=== PATIENT | male | born 1945 ===

== ENCOUNTER 2018-06-02 07:44 | Day surgery (SDC) | payer MEDICARE ==
[2018-05-28 08:41] VITALS: BMI 31.2
[2018-06-02] MEDS ORDERED: cefTRIAXone (Rocephin) 1 gm Inj ONE (09:13)
[2018-06-02] MEDS ORDERED: Succinylcholine 200 mg/10 ml Inj IV ONE (09:24)
[2018-06-02] MEDS ORDERED: Propofol 10 mg/ml Inj (20 ML) ONE (09:24)
[2018-06-02] MEDS ORDERED: Lactated Ringer's 1,000 ML IV ONE ×2 (09:30→10:10)
[2018-06-02] MEDS ORDERED: ePHEDrine 50 mg/ml Inj ONE (09:43)
[2018-06-02] MEDS ORDERED: Phenylephrine 10 mg/ml Inj ONE (09:49)
[2018-06-02 10:28] VITALS: RESP 20
[2018-06-02 13:05] VITALS: BP 120/68; PULSE 66; TEMP 97.8; O2SAT 99
--- NOTE | 2018-06-02 13:30 | RAD ---
Date of service: 06/02/2018 PROCEDURE: Intraoperative Fluoroscopy. HISTORY: CYSTOSCOPY FINDINGS: Fluoroscopic assistance was provided for cystoscopy. Please refer to the operative report from [facility]. Nine images submitted.
--- NOTE | 2018-06-02 19:54 | OP ---
PROCEDURE DATE: 06/02/2018 PREOPERATIVE DIAGNOSIS: Proximal urethral stricture. POSTOPERATIVE DIAGNOSIS: Proximal urethral stricture. PROCEDURE PERFORMED: Cystoscopy with laser urethrotomy of the urethral stricture. DESCRIPTION OF PROCEDURE: The patient was placed on the operating room table, given general anesthesia, in a dorsal lithotomy position. The area of the groin was draped and prepped in the sterile manner. At this time, using a #19 cystoscope, I entered in to the urethra atraumatically. The level of the proximal urethra could not pass any cystoscope. At this time, I was able to get a Sensor wire through the area that was very tight. Once this was in place, I used that as a safety and then deployed a 500 laser fiber and began to lyse the stenotic area. Once the opening was sufficiently large, I then was able to pass the cystoscope freely from there in to the bladder. The prostate shows some trilobar hypertrophy but not occlusive at this time. I went back to the area of the surgical site, made sure that the fibers were sufficiently cut with the laser and then I removed the cystoscope and easily I was able to pass a # 20 two-way [place] to maintain patency. Blood loss was nil. The patient was taken from the operative room in good condition. Essence Castellanos MD
== END 2018-06-02 13:00 | disposition home or self-care (01) ==
LOC: H.OPSURG 07:44
PROVIDERS: ATTEND Urology
DX: N35.9 Urethral stricture, unspecified (principal)
CPT/HCPCS: 52275; C1769; J0696; J2370; J2704; J3010; J7120

== ENCOUNTER 2018-06-08 22:29 | Observation (INO) | payer MEDICARE ==
[2018-06-08 22:30] VITALS: BMI 31.2
[2018-06-08] MEDS ORDERED: Sodium Chloride 0.9% 100 ML IV STA (23:05)
[2018-06-08 23:16] LABS: URINE BILIRUBIN NEGATIVE (NEGATIVE); URINE BLOOD LARGE (NEGATIVE); URINE CLARITY CLOUDY (Clear); URINE COLOR RED (YELLOW); URINE GLUCOSE (UA) 50 mg/dL (Normal); URINE LEUKOCYTE ESTERASE NEG Leu/uL (Negative); URINE PROTEIN 100 mg/dL (NEGATIVE); URINE UROBILINOGEN 0.2-1.0 mg/dL (0.2-1.0)
[2018-06-08 23:19] LABS: BASO % 0.7 % (0.0-2.0); EOS # 0.1 K/uL (0.0-0.7); LYMPH # 2.1 K/uL (1.0-4.3); LYMPH % 34.5 % (20.0-40.0); MEAN CELL VOLUME 91.7 fl (80.0-94.0); MEAN CORPUSCULAR HEMOGLOBIN 31.1 pg (27.0-31.0); MEAN PLATELET VOLUME 8.1 fl (7.2-11.7); MONO # 0.8 K/uL (0.0-0.8); MONO % 13.1 % (0.0-10.0); NEUT % 49.7 % (50.0-75.0); RBC 4.5 Mil/uL (4.40-5.90); RED CELL DISTRIBUTION WIDTH 13.8 % (11.5-14.5)
[2018-06-08 23:24] LABS: INR 1.1; PROTHROMBIN TIME 11.9 Seconds (9.8-13.1)
[2018-06-08 23:26] LABS: PARTIAL THROMBOPLASTIN TIME 34.1 Seconds (25.6-37.1)
[2018-06-08 23:27] LABS: ALB/GLOB RATIO 1.4 (1.0-2.1); ALBUMIN 4.6 g/dL (3.5-5.0); ALT/SGPT 30 U/L (21-72); AST/SGOT 39 U/L (17-59); BLOOD UREA NITROGEN 18 mg/dl (9-20); CALCIUM 9.2 mg/dL (8.4-10.2); GFR AFRICAN-AMERICAN > 60; GFR NON-AFRICAN AMERICAN > 60
--- NOTE | 2018-06-08 23:35 | ED PDOC ---
HPI: Male Pain Time Seen by Provider: 06/08/18 22:45 Chief Complaint (Nursing): Male Genitourinary Chief Complaint (Provider): hematuria History Per: Patient History/Exam Limitations: no limitations Onset/Duration Of Symptoms: Sudden Onset (at 2pm today, 3 episodes.) Current Symptoms Are (Timing): Still Present Quality Of Discomfort: Other (just prior to arrival started to have dysuria) Associated Symptoms: Urinary Symptoms. denies: Fever, Chills, Nausea, Vomiting , Diarrhea, Loss Of Appetite, Back Pain, Chest Pain, Constipation, Other Additional Complaint(s): Hematuria with large clots since 2p. Recently had cystoscopy 06/[address] Castellanos Pt also on anticoagulants for arrythmia He denies bleeding elsewhere PMD Dr Maurizio Morales Past Medical History Reviewed: Historical Data, Nursing Documentation, Vital Signs Vital Signs: Last Vital Signs Temp 98.2 F 06/08/18 22:35 Pulse 61 06/08/18 22:35 Resp 17 06/08/18 22:35 BP 161/84 H 06/08/18 22:35 Pulse Ox 99 06/08/18 22:35 - Medical History PMH: Cardia Arrhythmia, Hypercholesterolemia Denies: Chronic Kidney Disease - Family History Family History: States: Hypertension - Social History Current smoker - smoking cessation education provided: No - Home Medications Home Medications: Ambulatory Orders Medication Instructions Recorded Aspirin [Aspirin Chewable] 81 mg PO DAILY 12/13/16 Clopidogrel [Plavix] 75 mg PO DAILY 12/13/16 Metoprolol Tartrate [Lopressor] 25 mg PO DAILY 12/13/16 Ranolazine [Ranexa] 500 mg PO BID 12/13/16 Ergocalciferol (Vitamin D2) 1.25 mg PO ASDIR 12/17/16 [Vitamin D2] Nitroglycerin [Nitrostat SL Tab] 1 tab PO TID PRN 12/17/16 Atorvastatin [Lipitor] 20 mg PO DAILY 05/28/18 Ciprofloxacin [Cipro] 500 mg PO BID 06/02/18 - Allergies Allergies/Adverse Reactions: Allergies Allergy/AdvReac Type Severity Reaction Status Date / Time No Known Allergies Allergy Verified 06/02/18 08:18 Review of Systems ROS Statement: Except As Marked, All Systems Reviewed And Found Negative (and as per HPI) Constitutional: Negative for: Fever, Chills Genitourinary Male: Positive for: Dysuria, Hematuria Physical Exam - Reviewed Nursing Documentation Reviewed: Yes Vital Signs Reviewed: Yes - Physical Exam Appears: Positive for: Non-toxic, No Acute Distress Head Exam: Positive for: ATRAUMATIC, NORMOCEPHALIC Skin: Positive for: Warm, Dry Eye Exam: Positive for: EOMI, PERRL ENT: Negative for: Pharyngeal Erythema, Tonsillar Exudate Neck: Positive for: Painless ROM, Supple Cardiovascular/Chest: Positive for: Regular Rate, Rhythm. Negative for: Murmur Respiratory: Positive for: Normal Breath Sounds. Negative for: Wheezing Gastrointestinal/Abdominal: Positive for: Bowel Sounds, Soft. Negative for: Tenderness Back: Positive for: Normal Inspection. Negative for: L CVA Tenderness, R CVA Tenderness Extremity: Positive for: Normal ROM. Negative for: Deformity Lymphatic: Negative for: Adenopathy Neurologic/Psych: Positive for: Alert. Negative for: Motor/Sensory Deficits - Laboratory Results Result Diagrams: 06/08/18 23:05 06/08/18 23:05 - ECG O2 Sat by Pulse Oximetry: 99 - Physician Consult Information Physician Contacted: Essence Castellanos Outcome Of Conversation: Pt to be hydrated and observed for progression to obstructive hematuria. Will eval in morn. Disposition - Clinical Impression Clinical Impression: Hematuria Discussed With : Brannon Angela Doctor Will See Patient In The: ED - Disposition Disposition Time: 23:00 Condition: FAIR - Pt Status Changed To: Hospital Disposition Of: Observation - POA Present On Arrival: None
--- NOTE | 2018-06-09 00:01 | CP.PCM.HP ---
History of Present Illness - History of Present Illness History of Present Illness: PMD:Dr Maurizio Morales Chief Complaint: Hematuria The patient was seen and examined in the ED with no family present HPI: 73 years old male with hx of Urinary stricture with cystostomy in 07/11/15, Acute Coronary Syndrome on ASA, Plavix and Ranexa as per patient, and Arrhythmia as per medical records, underwent again Cystostomy on 06/02/[address] Castellanos of Urology. The fritz catheter was removed on 06/05/18. He comes to the ED because of sudden unset of hematuria with clots today 06/08/18 with mild dysuria and frequency.. No fever, chills, nausea, vomits, Chest pain, Diarrhea PMH: Urethral Stricture; Cardiac Arrhythmia; ACS; PSH: Cystostopy with Urethrotomy on 07/11/15; Bilateral Inguinal hernia repair SH: Former Smoker; Used Alcohol in the past; No illegal drug use; Live alone FH: Significant for HTN Medication: Reviewed Present on Admission - Present on Admission Any Indicators Present on Admission: No History of DVT/PE: No History of Uncontrolled Diabetes: No Urinary Catheter: No Decubitus Ulcer Present: No Review of Systems - Constitutional Constitutional: absent: Anorexia, Chills, Fever, Headache - EENT Eyes: Requires Corrective Lenses. absent: Blurred Vision, Diplopia, Floaters Ears: absent: Decreased Hearing, Tinnitus Nose/Mouth/Throat: absent: Nasal Congestion, Nasal Discharge, Sinus Pain, Sinus Pressure - Cardiovascular Cardiovascular: absent: Chest Pain, Dyspnea, Edema, Palpitations - Respiratory Respiratory: absent: Cough, Dyspnea - Gastrointestinal Gastrointestinal: absent: Constipation, Diarrhea, Nausea, Vomiting - Genitourinary Genitourinary: Dysuria, Hematuria, Urinary Frequency. absent: Flank Pain - Musculoskeletal Musculoskeletal: absent: Arthralgias, Back Pain, Muscle Weakness - Integumentary Integumentary: absent: Pruritus, Rash, Skin Ulcer, Sores, Striae, Swelling - Neurological Neurological: absent: Confusion, Dizziness, Numbness, Focal Weakness, Weakness - Psychiatric Psychiatric: absent: Anxiety, Depression, Panic Attacks - Endocrine Endocrine: absent: Palpitations, Polydipsia, Polyphagia, Polyuria - Hematologic/Lymphatic Hematologic: absent: Easy Bleeding, Easy Bruising Past Patient History - Past Medical History & Family History Past Medical History?: Yes - Past Social History Smoking Status: Former Smoker Chewing Tobacco Use: No Cigar Use: No Alcohol: Other Drugs: Denies Home Situation {Lives}: Alone - CARDIAC Hx Cardia Arrhythmia: Yes Hx Hypercholesterolemia: Yes - PULMONARY Hx Respiratory Disorders: No - NEUROLOGICAL Hx Neurological Disorder: No - HEENT Hx HEENT Problems: No - RENAL Other/Comment: Urethral Stricture - ENDOCRINE/METABOLIC Hx Endocrine Disorders: No - HEMATOLOGICAL/ONCOLOGICAL Hx Blood Disorders: No - INTEGUMENTARY Hx Dermatological Problems: No - MUSCULOSKELETAL/RHEUMATOLOGICAL Hx Musculoskeletal Disorders: No - GASTROINTESTINAL Hx Gastrointestinal Disorders: No - GENITOURINARY/GYNECOLOGICAL Hx Genitourinary Disorders: No Hx Prostate Problems: Yes (difficulty of starting to urinate) - PSYCHIATRIC Hx Psychophysiologic Disorder: No - SURGICAL HISTORY Hx Surgeries: Yes Hx Cardiac Catheterization: Yes (4 months ago) Hx Herniorrhaphy: Yes (inguinal right and left) Other/Comment: bilateral inguinal hernia repair 15 yrs ago cystoscopy - ANESTHESIA Hx Anesthesia: Yes Hx Anesthesia Reactions: No Hx Malignant Hyperthermia: No Meds Allergies/Adverse Reactions: Allergies Allergy/AdvReac Type Severity Reaction Status Date / Time No Known Allergies Allergy Verified 06/09/18 00:52 Physical Exam - Constitutional Appears: No Acute Distress - Head Exam Head Exam: ATRAUMATIC, NORMAL INSPECTION, NORMOCEPHALIC - Eye Exam Eye Exam: EOMI, Normal appearance Pupil Exam: NORMAL ACCOMODATION, PERRL - ENT Exam ENT Exam: Mucous Membranes Dry, Normal Exam, Normal External Ear Exam - Neck Exam Neck exam: Positive for: Full Rom, Normal Inspection. Negative for: Lymphadenopathy, Tenderness - Respiratory Exam Respiratory Exam: absent: Rhonchi, Wheezes Additional comments: Left base with inspiratory rales and right base with decreased breath sounds - Cardiovascular Exam Cardiovascular Exam: REGULAR RHYTHM, RRR, +S1, +S2 - GI/Abdominal Exam GI & Abdominal Exam: Normal Bowel Sounds, Soft. absent: Mass, Organomegaly, Tenderness - Rectal Exam Rectal Exam: Deferred - Extremities Exam Extremities exam: Negative for: full ROM, joint swelling, normal inspection - Back Exam Back exam: NORMAL INSPECTION. absent: CVA tenderness (L), CVA tenderness (R) - Neurological Exam Neurological exam: Alert, CN II-XII Intact, Oriented x3, Reflexes Normal - Psychiatric Exam Psychiatric exam: Normal Affect, Normal Mood - Skin Skin Exam: Dry, Intact, Normal Color, Warm Results - Vital Signs Recent Vital Signs: Last Vital Signs Temp 98.2 F 06/08/18 22:35 Pulse 61 06/08/18 22:35 Resp 17 06/08/18 22:35 BP 161/84 H 06/08/18 22:35 Pulse Ox 99 06/08/18 23:55 - Labs Result Diagrams: 06/08/18 23:05 06/08/18 23:05 Labs: Laboratory Results - last 24 hr 06/08/18 06/08/18 06/08/18 22:50 23:05 23:05 WBC 6.0 RBC 4.50 Hgb 14.0 Hct 41.2 MCV 91.7 MCH 31.1 H MCHC 34.0 RDW 13.8 Plt Count 261 MPV 8.1 Neut % (Auto) 49.7 L Lymph % (Auto) 34.5 [place] % (Auto) 13.1 H Eos % (Auto) 2.0 Baso % (Auto) 0.7 Neut # (Auto) 3.0 Lymph # (Auto) 2.1 [place] # (Auto) 0.8 Eos # (Auto) 0.1 Baso # (Auto) 0.0 PT INR APTT Sodium 135 Potassium 3.8 Chloride 96 L Carbon Dioxide 30 Anion Gap 13 BUN 18 Creatinine 1.1 Est GFR ( Amer) > 60 Est GFR (Non-Af Amer) > 60 Random Glucose 100 Calcium 9.2 Total Bilirubin 0.4 AST 39 ALT 30 Alkaline Phosphatase 108 Total Protein 8.0 Albumin 4.6 Globulin 3.4 Albumin/Globulin Ratio 1.4 Urine Color Red Urine Clarity Cloudy Urine pH 7.0 Ur Specific [place] 1.009 Urine Protein 100 Urine Glucose (UA) 50 Urine Ketones Negative Urine Blood Large Urine Nitrate Negative Urine Bilirubin Negative Urine Urobilinogen 0.2-1.0 Ur Leukocyte Esterase Neg Urine RBC (Auto) 2869 H Urine Microscopic WBC 16 H Blood Type BBK History Checked 06/08/18 06/08/18 23:05 23:05 WBC RBC Hgb Hct MCV MCH MCHC RDW Plt Count MPV Neut % (Auto) Lymph % (Auto) [place] % (Auto) Eos % (Auto) Baso % (Auto) Neut # (Auto) Lymph # (Auto) [place] # (Auto) Eos # (Auto) Baso # (Auto) PT 11.9 INR 1.1 APTT 34.1 Sodium Potassium Chloride Carbon Dioxide Anion Gap BUN Creatinine Est GFR ( Amer) Est GFR (Non-Af Amer) Random Glucose Calcium Total Bilirubin AST ALT Alkaline Phosphatase Total Protein Albumin Globulin Albumin/Globulin Ratio Urine Color Urine Clarity Urine pH Ur Specific [place] Urine Protein Urine Glucose (UA) Urine Ketones Urine Blood Urine Nitrate Urine Bilirubin Urine Urobilinogen Ur Leukocyte Esterase Urine RBC (Auto) Urine Microscopic WBC Blood Type O POSITIVE BBK History Checked No verified bt - Imaging and Cardiology Chest x-ray Status: Image reviewed by me Additional comment: Elevated right diaphragm.No infiltrates Assessment & Plan - Assessment and Plan (Free Text) Assessment: #. Hematuria s/p Cystectomy #. Elevated Blood Pressures #. Hx of ACS Plan: 73 years old male with hx of Urinary stricture with cystostomy in , Acute Coronary Syndrome on ASA, Plavix and Ranexa as per patient, underwent again Cystostomy on 06/02/[address] Castellanos of Urology. He started presenting Hematuria 5 days post Cystostomy. #. Hematuria s/p Cystectomy probably secondary to the Ranexa in combination with ASA and Plavix - Hold Ranexa/Asa and Platelet until cleared by Urology - IV Fluid - Follow Hb #. Elevated Blood Pressures - Continue Lopressor - Follow blood Pressures #. Hx of ACS - Lipitor - ASA/ Plavix and Ranexa on hold #. Pulmonary Rales most likely secondary to Atelecstasis #. DVT Prophylaxis with SCD #. Code Status: Full - Date & Time Date: 06/09/18 Time: 00:00
--- NOTE | 2018-06-09 00:02 | CP.PCM.HP ---
Past Patient History - Past Medical History & Family History Past Medical History?: Yes - Past Social History Smoking Status: Never Smoked - CARDIAC Hx Cardia Arrhythmia: Yes Hx Hypercholesterolemia: Yes - PULMONARY Hx Respiratory Disorders: No - NEUROLOGICAL Hx Neurological Disorder: No - HEENT Hx HEENT Problems: No - RENAL Hx Chronic Kidney Disease: No - ENDOCRINE/METABOLIC Hx Endocrine Disorders: No - HEMATOLOGICAL/ONCOLOGICAL Hx Blood Disorders: No - INTEGUMENTARY Hx Dermatological Problems: No - MUSCULOSKELETAL/RHEUMATOLOGICAL Hx Musculoskeletal Disorders: No - GENITOURINARY/GYNECOLOGICAL Hx Genitourinary Disorders: No Hx Prostate Problems: Yes (difficulty of starting to urinate) - PSYCHIATRIC Hx Psychophysiologic Disorder: No - SURGICAL HISTORY Hx Surgeries: Yes Hx Cardiac Catheterization: Yes (4 months ago) Hx Herniorrhaphy: Yes (inguinal right and left) Other/Comment: bilateral inguinal hernia repair 15 yrs ago cystoscopy - ANESTHESIA Hx Anesthesia: Yes Hx Anesthesia Reactions: No Hx Malignant Hyperthermia: No Meds Allergies/Adverse Reactions: Allergies Allergy/AdvReac Type Severity Reaction Status Date / Time No Known Allergies Allergy Verified 06/02/18 08:18 Results - Vital Signs Recent Vital Signs: Last Vital Signs Temp 98.2 F 06/08/18 22:35 Pulse 61 06/08/18 22:35 Resp 17 06/08/18 22:35 BP 161/84 H 06/08/18 22:35 Pulse Ox 99 06/08/18 23:55 - Labs Result Diagrams: 06/08/18 23:05 06/08/18 23:05 Labs: Laboratory Results - last 24 hr 06/08/18 06/08/18 06/08/18 22:50 23:05 23:05 WBC 6.0 RBC 4.50 Hgb 14.0 Hct 41.2 MCV 91.7 MCH 31.1 H MCHC 34.0 RDW 13.8 Plt Count 261 MPV 8.1 Neut % (Auto) 49.7 L Lymph % (Auto) 34.5 [place] % (Auto) 13.1 H Eos % (Auto) 2.0 Baso % (Auto) 0.7 Neut # (Auto) 3.0 Lymph # (Auto) 2.1 [place] # (Auto) 0.8 Eos # (Auto) 0.1 Baso # (Auto) 0.0 PT INR APTT Sodium 135 Potassium 3.8 Chloride 96 L Carbon Dioxide 30 Anion Gap 13 BUN 18 Creatinine 1.1 Est GFR ( Amer) > 60 Est GFR (Non-Af Amer) > 60 Random Glucose 100 Calcium 9.2 Total Bilirubin 0.4 AST 39 ALT 30 Alkaline Phosphatase 108 Total Protein 8.0 Albumin 4.6 Globulin 3.4 Albumin/Globulin Ratio 1.4 Urine Color Red Urine Clarity Cloudy Urine pH 7.0 Ur Specific [place] 1.009 Urine Protein 100 Urine Glucose (UA) 50 Urine Ketones Negative Urine Blood Large Urine Nitrate Negative Urine Bilirubin Negative Urine Urobilinogen 0.2-1.0 Ur Leukocyte Esterase Neg Urine RBC (Auto) 2869 H Urine Microscopic WBC 16 H Blood Type BBK History Checked 06/08/18 06/08/18 23:05 23:05 WBC RBC Hgb Hct MCV MCH MCHC RDW Plt Count MPV Neut % (Auto) Lymph % (Auto) [place] % (Auto) Eos % (Auto) Baso % (Auto) Neut # (Auto) Lymph # (Auto) [place] # (Auto) Eos # (Auto) Baso # (Auto) PT 11.9 INR 1.1 APTT 34.1 Sodium Potassium Chloride Carbon Dioxide Anion Gap BUN Creatinine Est GFR ( Amer) Est GFR (Non-Af Amer) Random Glucose Calcium Total Bilirubin AST ALT Alkaline Phosphatase Total Protein Albumin Globulin Albumin/Globulin Ratio Urine Color Urine Clarity Urine pH Ur Specific [place] Urine Protein Urine Glucose (UA) Urine Ketones Urine Blood Urine Nitrate Urine Bilirubin Urine Urobilinogen Ur Leukocyte Esterase Urine RBC (Auto) Urine Microscopic WBC Blood Type O POSITIVE BBK History Checked No verified bt Assessment & Plan - Date & Time Date: 06/08/18 Time: 23:55
[2018-06-09] MEDS: Sodium Chloride 0.9% 1,000 ML IV SCH ×2 (00:55→10:14)
[2018-06-09 06:39] LABS: BASO % 0.6 % (0.0-2.0); EOS # 0.1 K/uL (0.0-0.7); EOS % 2.2 % (0.0-4.0); LYMPH # 1.8 K/uL (1.0-4.3); LYMPH % 33.9 % (20.0-40.0); MEAN CELL VOLUME 91.2 fl (80.0-94.0); MEAN CORPUSCULAR HEMOGLOBIN 31.2 pg (27.0-31.0); MEAN CORPUSCULAR HGB CONC 34.3 g/dL (33.0-37.0); MEAN PLATELET VOLUME 8.3 fl (7.2-11.7); MONO # 0.6 K/uL (0.0-0.8); MONO % 11.8 % (0.0-10.0); NEUT # 2.8 K/uL (1.8-7.0); NEUT % 51.5 % (50.0-75.0); NRBC % 0.1 % (0.0-0.0); RBC 4.15 Mil/uL (4.40-5.90); RED CELL DISTRIBUTION WIDTH 13.6 % (11.5-14.5); WHITE BLOOD COUNT 5.5 K/uL (4.8-10.8)
[2018-06-09 08:09] VITALS: TEMP 98
--- NOTE | 2018-06-09 08:23 | CARD ---
APPROVED REPORT Date of service: 06/09/2018 EKG Measurement Heart [id number] <Conclusion> Sinus bradycardia Otherwise normal ECG
--- NOTE | 2018-06-09 08:28 | RAD ---
Date of service: 06/09/2018 HISTORY: Rales at left base; decreased breath sounds at rig COMPARISON: Chest radiographs 05/27/2018. TECHNIQUE: Chest PA and lateral FINDINGS: LUNGS: No active pulmonary disease. PLEURA: No significant pleural effusion identified. No pneumothorax apparent. CARDIOVASCULAR: Normal. OSSEOUS STRUCTURES: No significant abnormalities. VISUALIZED UPPER ABDOMEN: Elevated right hemidiaphragm stable. OTHER FINDINGS: None. IMPRESSION: No acute cardiopulmonary disease appreciable. Elevated right hemidiaphragm again identified.
[2018-06-09 12:46] VITALS: BP 114/76; PULSE 95; RESP 22; O2SAT 97
--- NOTE | 2018-06-09 13:56 | CP.PCM.DIS ---
Provider - Provider Date of Admission: 06/08/18 23:53 Attending physician: Brannon Angela Primary care physician: Maurizio Akbar MD Consults: urology consult Time Spent in preparation of Discharge (in minutes): 15 Hospital Course - Lab Results Lab Results: Most Recent Lab Values WBC 5.5 K/uL (4.8-10.8) 06/09/18 05:45 RBC 4.15 Mil/uL (4.40-5.90) L 06/09/18 05:45 Hgb 13.0 g/dL (12.0-18.0) 06/09/18 05:45 Hct 37.9 % (35.0-51.0) 06/09/18 05:45 MCV 91.2 fl (80.0-94.0) 06/09/18 05:45 MCH 31.2 pg (27.0-31.0) H 06/09/18 05:45 MCHC 34.3 g/dL (33.0-37.0) 06/09/18 05:45 RDW 13.6 % (11.5-14.5) 06/09/18 05:45 Plt Count 233 K/uL (130-400) 06/09/18 05:45 MPV 8.3 fl (7.2-11.7) 06/09/18 05:45 Neut % (Auto) 51.5 % (50.0-75.0) 06/09/18 05:45 Lymph % (Auto) 33.9 % (20.0-40.0) 06/09/18 05:45 [place] % (Auto) 11.8 % (0.0-10.0) H 06/09/18 05:45 Eos % (Auto) 2.2 % (0.0-4.0) 06/09/18 05:45 Baso % (Auto) 0.6 % (0.0-2.0) 06/09/18 05:45 Neut # (Auto) 2.8 K/uL (1.8-7.0) 06/09/18 05:45 Lymph # (Auto) 1.8 K/uL (1.0-4.3) 06/09/18 05:45 [place] # (Auto) 0.6 K/uL (0.0-0.8) 06/09/18 05:45 Eos # (Auto) 0.1 K/uL (0.0-0.7) 06/09/18 05:45 Baso # (Auto) 0.0 K/uL (0.0-0.2) 06/09/18 05:45 PT 11.9 Seconds (9.8-13.1) 06/08/18 23:05 INR 1.1 06/08/18 23:05 APTT 34.1 Seconds (25.6-37.1) 06/08/18 23:05 Sodium 135 mmol/l (132-148) 06/08/18 23:05 Potassium 3.8 MMOL/L (3.6-5.0) 06/08/18 23:05 Chloride 96 mmol/L (98-107) L 06/08/18 23:05 Carbon Dioxide 30 mmol/L (22-30) 06/08/18 23:05 Anion Gap 13 (10-20) 06/08/18 23:05 BUN 18 mg/dl (9-20) 06/08/18 23:05 Creatinine 1.1 mg/dl (0.8-1.5) 06/08/18 23:05 Est GFR ( Amer) > 60 06/08/18 23:05 Est GFR (Non-Af Amer) > 60 06/08/18 23:05 Random Glucose 100 mg/dL (75-110) 06/08/18 23:05 Calcium 9.2 mg/dL (8.4-10.2) 06/08/18 23:05 Total Bilirubin 0.4 mg/dl (0.2-1.3) 06/08/18 23:05 AST 39 U/L (17-59) 06/08/18 23:05 ALT 30 U/L (21-72) 06/08/18 23:05 Alkaline Phosphatase 108 U/L (38-126) 06/08/18 23:05 Troponin I < 0.0120 ng/mL (0.00-0.120) 06/09/18 12:40 Total Protein 8.0 G/DL (6.3-8.2) 06/08/18 23:05 Albumin 4.6 g/dL (3.5-5.0) 06/08/18 23:05 Globulin 3.4 gm/dL (2.2-3.9) 06/08/18 23:05 Albumin/Globulin Ratio 1.4 (1.0-2.1) 06/08/18 23:05 Urine Color Red (YELLOW) 06/08/18 22:50 Urine Clarity Cloudy (Clear) 06/08/18 22:50 Urine pH 7.0 (5.0-8.0) 06/08/18 22:50 Ur Specific [place] 1.009 (1.003-1.030) 06/08/18 22:50 Urine Protein 100 mg/dL (NEGATIVE) 06/08/18 22:50 Urine Glucose (UA) 50 mg/dL (Normal) 06/08/18 22:50 Urine Ketones Negative mg/dL (NEGATIVE) 06/08/18 22:50 Urine Blood Large (NEGATIVE) 06/08/18 22:50 Urine Nitrate Negative (NEGATIVE) 06/08/18 22:50 Urine Bilirubin Negative (NEGATIVE) 06/08/18 22:50 Urine Urobilinogen 0.2-1.0 mg/dL (0.2-1.0) 06/08/18 22:50 Ur Leukocyte Esterase Neg [place]/uL (Negative) 06/08/18 22:50 Urine RBC (Auto) 2869 /hpf (0-3) H 06/08/18 22:50 Urine Microscopic WBC 16 /hpf (0-5) H 06/08/18 22:50 Blood Type O POSITIVE 06/08/18 23:05 Antibody Screen Negative 06/08/18 23:05 BBK History Checked No verified bt 06/08/18 23:05 - Hospital Course Hospital Course: 73 years old male with hx of Urinary stricture with cystostomy in , Acute Coronary Syndrome on ASA, Plavix and Ranexa as per patient, underwent again Cystostomy on 06/02/[address] Castellanos of Urology. He started presenting Hematuria 5 days post Cystostomy.Patient presented to ER for evaluation and urology was consulted .He was placed under observation in med/ surg. H& H remained stable during admission and hematuria resolved . urology evaluated patient and cleared for discharge During this stay patient was noted to use his own nitro Sl as recommended by his manager of creative services for angina. 12 lead EKG wsa performed and showed NSR with no ST -T wave changes and troponins were egative. patient has had cardiac cath by his manager of creative services 1 year ago and was clear with no stents placed but was placed onnitro and Ranezx afor angina. At present he is hemodynamically stable with no chest pain or SOB. He is under the care of his manager of creative services and follows up regularly every 2 months Will discharge patient home in stable conditions. Advise to follow up with his PMD ( manager of creative services ) and with Dr. Castellanos in 1 week in his office Will resume his home medications on discharge 1. Hematuria s/p Cystectomy-- resolved H&H stable Follow up with Dr. Castellanos in 1 week 2. Elevated Blood Pressures Continue Lopressor 3. Hx of ACS/ angina trop negative 12 lead EKG negative for ST-T wave changes follow up with his manager of creative services resume home meds Discharge Exam - Head Exam Head Exam: ATRAUMATIC, NORMAL INSPECTION, NORMOCEPHALIC - Eye Exam Eye Exam: EOMI, Normal appearance, PERRL Pupil Exam: NORMAL ACCOMODATION - ENT Exam ENT Exam: Mucous Membranes Moist, Normal Exam - Neck Exam Neck exam: Full Rom, Normal Inspection - Respiratory Exam Respiratory Exam: Clear to PA & Lateral, NORMAL BREATHING PATTERN. absent: Rales, Rhonchi, Wheezes - Cardiovascular Exam Cardiovascular Exam: REGULAR RHYTHM, RRR, +S1, +S2. absent: JVD - GI/Abdominal Exam GI & Abdominal Exam: Normal Bowel Sounds, Soft. absent: Distended, Guarding, Rebound, Tenderness - Rectal Exam Rectal Exam: Deferred - Extremities Exam Extremities exam: normal capillary refill, normal inspection, pedal pulses present - Back Exam Back exam: NORMAL INSPECTION - Neurological Exam Neurological exam: Alert, CN II-XII Intact, Oriented x3, Reflexes Normal - Psychiatric Exam Psychiatric exam: Normal Affect, Normal Mood - Skin Skin Exam: Dry, Intact, Normal Color, Warm Discharge Plan - Follow Up Plan Condition: STABLE Disposition: HOME/ ROUTINE Patient education suggested?: Yes Instructions: Blood in the Urine (Hematuria), Adult (DC) Referrals: Essence Castellanos MD [Medical Doctor] -
--- NOTE | 2018-06-10 09:09 | CARD ---
APPROVED REPORT Date of service: 06/09/2018 EKG Measurement Heart [id number] <Conclusion> Sinus bradycardia with 1st degree AV block Inferior infarct, age undetermined Abnormal ECG
== END 2018-06-09 14:30 | disposition home or self-care (01) ==
LOC: H.ER 22:29 → H.ERHOLD 23:53
PROVIDERS: ADMIT Internal Medicine; ATTEND Internal Medicine
DX: R31.9 Hematuria, unspecified (principal); I10 Essential (primary) hypertension; I24.9 Acute ischemic heart disease, unspecified; E78.00 Pure hypercholesterolemia, unspecified; Z98.890 Other specified postprocedural states; Z90.6 Acquired absence of other parts of urinary tract; Z79.02 Long term (current) use of antithrombotics/antiplatelets; Z87.891 Personal history of nicotine dependence
CPT/HCPCS: 71046; 80053; 81003; 84484; 85025; 85610; 85730; 86850; 86900; 87086; 93005; 99285; G0378; J7030